=== PATIENT | male | born 1950 | race Caucasian/White ===

== ENCOUNTER → 2018-05-07 | Outpatient (CLI) | payer OTHER ==
[~2018-05-07] MED LIST: AVELOX400 MG PO; DIOVAN; PHENERGAN-CODE120 ML PO; PREDNISONE50 MG PO; PROAIR HFA8.5 GM IH; [UNRECOGNIZED DRUG - OTHER] PO
--- NOTE | ~2018-05-07 | EKG ---
[address] [address] ELECTROCARDIOGRAM REPORT Name: ANDERSON TRINIDAD Room #: [facility]#: [id number] Admission: 05/07/18 Attend Phys: Zoya Kan MD Discharge: Date of : 54 Report #: [id number] THIS REPORT FOR: //name// [facility] Test Date: 2018-05-07 Test Time: 10:49:26 Pat Name: ANDERSON TRINIDAD Department: Room: Gender: M [employer] Science Technician: DAYAN : 1950 Requested By: Zoya Kan Order Number: [id number] MD: Avelino Vasquez Measurements Intervals [place] Rate: 66 P: 50 CO: 183 QRS: 2 QRSD: 98 T: 18 QT: 405 QTc: 425 Interpretive Statements Sinus rhythm Probable left atrial enlargement Baseline wander in lead(s) V1,V2 No previous ECG available for comparison Electronically Signed On 05-07-2018 16:46:24 [employer] by Avelino Vasquez [email or web address] <ELECTRONICALLY SIGNED> By: Avelino Vasquez MD 05/07/18 1646 [id number] [id number] Avelino Vasquez MD /MEGAN
== END ==
LOC: CV 10:22
DX: Z01.812 Encounter for preprocedural laboratory examination (principal)